=== PATIENT | female | born 2000 | race African-American/Black ===

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

== ENCOUNTER 2021-11-25 12:26 | Emergency (ER) | payer MEDICAID ==
[~2021-11-25] VITALS: Ht 167.6 cm; Wt 100.0 kg
[~2021-11-25 12:26] MED LIST changes: -ALBU6.7H INH; +ALBU6.7H15 INH; +LEVO500T2 PO; +TRAM50TA3 PO
[2021-11-25 12:44] VITALS: BP 131/89
[2021-11-25] MEDS ORDERED: DEXA5DRO RIGHTEYE (13:15)
[2021-11-25] MEDS ORDERED: CIPR1DRO2 EACH EAR (13:15)
== END 2021-11-25 13:39 | disposition home or self-care (01) ==
LOC: ER 12:26
DX: H92.01 Otalgia, right ear (principal); J45.909 Unspecified asthma, uncomplicated
CPT/HCPCS: 99281

== ENCOUNTER 2021-12-23 09:08 | Emergency (ER) | payer MEDICAID ==
[~2021-12-23] VITALS: Ht 167.6 cm; Wt 100.0 kg
[~2021-12-23 09:08] MED LIST changes: +CIPR1DRO2 EACH EAR; +DEXA5DRO RIGHTEYE
[2021-12-23 09:15] VITALS: BP 144/70
[2021-12-23] MEDS ORDERED: ACETAMINOPHEN 325MG TABLET PO ONE (10:00)
[2021-12-23] MEDS ORDERED: AMOX1TAB16 MT (10:04)
[2021-12-23] MEDS ORDERED: CIPHCO LEFT EAR (10:04)
== END 2021-12-23 11:43 | disposition home or self-care (01) ==
LOC: ER 09:58
DX: H60.92 Unspecified otitis externa, left ear (principal)
CPT/HCPCS: 81025; 99282; 99283

== ENCOUNTER 2022-09-16 18:55 | Emergency (ER) | payer MEDICAID, OTHER ==
[~2022-09-16] VITALS: Ht 167.6 cm; Wt 91.0 kg
[~2022-09-16 18:55] MED LIST changes: +AMOX1TAB16 MT; +CIPHCO LEFT EAR
[2022-09-16] MEDS ORDERED: PENICILLIN G BENZATHINE 1,200,000 UNITS/2ML SYR IM ONE (19:45)
[2022-09-16] MEDS ORDERED: KETOROLAC 60MG/2ML VIAL IM ONE (19:45)
[2022-09-16] MEDS ORDERED: DEXAMETHASONE 10 MG/ML VIAL IM ONE (19:45)
[2022-09-16 19:48] VITALS: BP 114/84
== END 2022-09-16 20:23 | disposition home or self-care (01) ==
LOC: ER 18:55
DX: J02.0 Streptococcal pharyngitis (principal); R13.10 Dysphagia, unspecified; J45.909 Unspecified asthma, uncomplicated
CPT/HCPCS: 81025; 87430; 96372; 99284; J0561; J1100; J1885; Z7610